=== PATIENT | female | born 1950 | race Caucasian/White ===

== ENCOUNTER 2019-05-02 02:27 | Inpatient (IN) | payer MEDICARE, OTHER ==
[~2019-05-02] VITALS: Ht 162.6 cm; Wt 64.9 kg
[~2019-05-02 02:27] MED LIST: SITA1TAB8 PO
[2019-05-02] MEDS ORDERED: FUROSEMIDE 40MG/4ML VIAL IV ONE (02:45)
[2019-05-02 03:39] LABS: HEMATOCRIT. 21.9 % (36.0-48.0); HEMOGLOBIN. 7.3 g/dL (12.0-16.0); MEAN CORPUSCULAR HEMOGLOBIN 30.1 pg (28.0-32.0); MEAN CORPUSCULAR VOLUME 90.3 fL (81.0-99.0); MEAN PLATELET VOLUME 8.8 fl (7.4-10.4); PLATELET 222 x1000/uL (130-400); RED BLOOD CELL COUNT 2.43 mill/uL (4.2-5.4); RED CELL DISTRIBUTION WIDTH 14.9 % (11.6-14.6)
[2019-05-02 03:49] LABS: CHLORIDE 103 mEq/L (98-107)
[2019-05-02] MEDS ORDERED: CLONIDINE 0.2MG TABLET PO ONE (05:15)
[2019-05-02 06:13] LABS: NUCLEATED RED BLOOD CELLS 1 /100 WBC; PLATELET ESTIMATE NORMAL
[2019-05-02] MEDS ORDERED: DEXTROSE 50% WATER 50ML SYRINGE IV PRN (10:15)
[2019-05-02] MEDS ORDERED: ACETAMINOPHEN 325MG TABLET PO PRN (10:15)
[2019-05-02] MEDS ORDERED: NIFEDIPINE XL 60MG TAB PO SCH ×2 (10:15→17:30)
[2019-05-02] MEDS ORDERED: ONDANSETRON HCL 4MG/2ML INJ IV PRN (10:15)
[2019-05-02 11:08] LABS: FERRITIN 175 ng/mL (10-291)
[2019-05-02 11:19] LABS: HEPATITIS B SURFACE ANTIGEN NEGATIVE
[2019-05-02 11:48] LABS: HEPATITIS A AB IGM NEGATIVE (NEGATIVE)
[2019-05-02] MEDS: CLONIDINE 0.1MG TABLET PO PRN ×2 (12:13→23:07)
[2019-05-02 12:25] LABS: PHOSPHORUS 8.3 mg/dL (2.5-4.9)
[2019-05-02] MEDS: IPRATROPIUM/ALBUTEROL 0.5-3(2.5)MG/3ML NEB HHN PRN (16:51)
[2019-05-02] MEDS ORDERED: CALCIUM ACETATE 667MG CAPSULE PO NR (17:15)
[2019-05-02] MEDS ORDERED: AZITHROMYCIN 500 MG TABLET PO NR (17:30)
[2019-05-02] MEDS ORDERED: CEFTRIAXONE 1 G PREMIX 50 ML IV NR (17:30)
[2019-05-02] MEDS: BLOOD SUGAR DIAGNOSTIC STRIP TEST SCH ×2 (18:38→22:49)
[2019-05-02] MEDS: INSULIN LISPRO 100 UNITS/ML SUBCUT SCH ×2 (18:39→22:53)
[2019-05-02] MEDS ORDERED: CITRIC ACID/SODIUM CITRATE SOLN 30ML UDC PO NR (23:15)
[2019-05-03 04:44] LABS: BASOPHILS % 0.2 % (0.0-2.0); LYMPHOCYTES % 10.4 % (20.0-50.0); MEAN CORPUSCULAR HEMOGLOBIN 30.3 pg (28.0-32.0); MEAN CORPUSCULAR VOLUME 89.1 fL (81.0-99.0); MEAN PLATELET VOLUME 8.7 fl (7.4-10.4); MONOCYTES % 8.4 % (2.0-8.0); PLATELET 173 x1000/uL (130-400); RED BLOOD CELL COUNT 1.86 mill/uL (4.2-5.4); RED CELL DISTRIBUTION WIDTH 14.7 % (11.6-14.6)
[2019-05-03 05:00] LABS: HEMATOCRIT. 16.5 % (36.0-48.0); HEMOGLOBIN. 5.6 g/dL (12.0-16.0)
[2019-05-03] MEDS: INSULIN LISPRO 100 UNITS/ML SUBCUT SCH ×4 (08:20→21:24)
[2019-05-03] MEDS: BLOOD SUGAR DIAGNOSTIC STRIP TEST SCH ×4 (09:00→20:16)
[2019-05-03 11:00] VITALS: BP 150/59
[2019-05-03 13:22] LABS: BASOPHILS % 0.4 % (0.0-2.0); EOSINOPHILS % 0.1 % (0.0-5.0); HEMATOCRIT. 27.3 % (36.0-48.0); HEMOGLOBIN. 9.4 g/dL (12.0-16.0); LYMPHOCYTES % 17.4 % (20.0-50.0); MEAN CORPUSCULAR HEMOGLOBIN 30.8 pg (28.0-32.0); MEAN CORPUSCULAR VOLUME 89.2 fL (81.0-99.0); MEAN PLATELET VOLUME 8.4 fl (7.4-10.4); MONOCYTES % 9.3 % (2.0-8.0); NEUTROPHILS % 72.8 % (40.0-76.0); PLATELET 171 x1000/uL (130-400); RED BLOOD CELL COUNT 3.07 mill/uL (4.2-5.4); RED CELL DISTRIBUTION WIDTH 15.1 % (11.6-14.6)
[2019-05-03] MEDS: NIFEDIPINE XL 60MG TAB PO SCH ×2 (13:25→20:58)
[2019-05-03] MEDS: BENZONATATE 100MG CAPSULE PO PRN ×2 (13:26→21:59)
[2019-05-03] MEDS: CITRIC ACID/SODIUM CITRATE SOLN 30ML UDC PO SCH ×2 (13:27→17:18)
[2019-05-03] MEDS: CALCIUM ACETATE 667MG CAPSULE PO SCH ×2 (13:28→17:18)
[2019-05-03 16:00] VITALS: BP 124/49
[2019-05-03] MEDS ORDERED: PNEUMOCOCCAL 23-VAL P-SAC VAC 0.5 ML IM ONE (17:00)
[2019-05-03] MEDS ORDERED: INFLUENZA VIRUS VACCINE(AFLURIA) 0.5ML SYR IM ONE (17:00)
[2019-05-03] MEDS: AZITHROMYCIN 500 MG TABLET PO SCH (17:18)
[2019-05-03] MEDS ORDERED: CEFTRIAXONE 1 G PREMIX 50 ML IV SCH (18:00)
[2019-05-03 20:00] VITALS: BP 110/45
[2019-05-04] VITALS: BP 124/51
[2019-05-04 04:00] VITALS: BP 107/36
[2019-05-04] MEDS: BLOOD SUGAR DIAGNOSTIC STRIP TEST SCH ×4 (06:14→21:00)
[2019-05-04] MEDS: BENZONATATE 100MG CAPSULE PO PRN ×4 (06:29→20:51)
[2019-05-04] MEDS: INSULIN LISPRO 100 UNITS/ML SUBCUT SCH ×4 (06:36→20:51)
[2019-05-04] MEDS: CALCIUM ACETATE 667MG CAPSULE PO SCH ×3 (08:46→18:01)
[2019-05-04] MEDS: NIFEDIPINE XL 60MG TAB PO SCH ×2 (08:46→20:51)
[2019-05-04] MEDS: DOCUSATE SODIUM 250MG CAPSULE PO SCH ×2 (08:46→17:00)
[2019-05-04] MEDS: CITRIC ACID/SODIUM CITRATE SOLN 30ML UDC PO SCH ×3 (08:47→18:01)
[2019-05-04 09:06] LABS: COMPLEMENT C3 73 mg/dL (82-167)
[2019-05-04 11:25] LABS: BG BASE EXCESS -10.3 mmol/L (-2.0-2.0); BG CARBOXYHEMOGLOBIN 0.1 % (0.5-1.5); BG DEOXYHEMOGLOBIN 4.2 % (0.0-5.0); BG FRACTION INSPIRED OXYGEN 21; BG HCO3 ACT 14.5 mmol/L (22.0-26.0); BG METHEMOGLOBIN 0.3 % (0.0-1.5); BG OXYGEN SATURATION 95.8 % (92.0-98.5); BG OXYHEMOGLOBIN 95.4 % (94.0-97.0); BG PCO2 28.6 mmHg (35.0-45.0); BG PH 7.324 (7.350-7.450); BG PO2 90.8 mmHg (75.0-100.0); BG SAMPLE SITE RIGHT RADIAL; BG TOTAL HEMOGLOBIN 9.4 g/dL (12.0-18.0); BG VENT MODE ROOM AIR
[2019-05-04] MEDS: IPRATROPIUM/ALBUTEROL 0.5-3(2.5)MG/3ML NEB HHN PRN (11:33)
[2019-05-04 11:54] LABS: BASOPHILS % 0.6 % (0.0-2.0); EOSINOPHILS % 0.1 % (0.0-5.0); HEMATOCRIT. 25.8 % (36.0-48.0); HEMOGLOBIN. 8.8 g/dL (12.0-16.0); MEAN CORPUSCULAR HEMOGLOBIN 30.6 pg (28.0-32.0); MEAN CORPUSCULAR VOLUME 89.6 fL (81.0-99.0); MEAN PLATELET VOLUME 9.1 fl (7.4-10.4); MONOCYTES % 10.7 % (2.0-8.0); NEUTROPHILS % 69.6 % (40.0-76.0); PLATELET 178 x1000/uL (130-400); RED BLOOD CELL COUNT 2.87 mill/uL (4.2-5.4); RED CELL DISTRIBUTION WIDTH 15.5 % (11.6-14.6)
[2019-05-04] MEDS ORDERED: DOCU250C14 MT (12:54)
[2019-05-04] MEDS ORDERED: NIFE-32 MT (12:54)
[2019-05-04] MEDS ORDERED: FERR325T6 MT (12:54)
[2019-05-04 15:08] LABS: ANTI-NUCLEAR ANTIBODIES DIRECT Negative (Negative)
[2019-05-04] MEDS: IRON SUCROSE COMPLEX 100 MG/5 ML ML IV SCH (15:19)
[2019-05-04] MEDS: AZITHROMYCIN 500 MG TABLET PO SCH (18:01)
[2019-05-04 20:00] VITALS: BP 120/41
[2019-05-04] MEDS: EPOETIN ALFA 10000UNITS/ML VIAL SUBCUT SCH (21:22)
[2019-05-05] VITALS: BP 128/52
[2019-05-05 04:00] VITALS: BP 143/54
[2019-05-05] MEDS: BENZONATATE 100MG CAPSULE PO PRN ×2 (04:11→21:08)
[2019-05-05] MEDS: BLOOD SUGAR DIAGNOSTIC STRIP TEST SCH ×4 (06:04→21:15)
[2019-05-05] MEDS: CALCIUM ACETATE 667MG CAPSULE PO SCH ×3 (06:07→17:30)
[2019-05-05] MEDS: INSULIN LISPRO 100 UNITS/ML SUBCUT SCH ×4 (06:13→21:00)
[2019-05-05 06:55] LABS: BASOPHILS % 0.3 % (0.0-2.0); EOSINOPHILS % 0.1 % (0.0-5.0); HEMATOCRIT. 27.2 % (36.0-48.0); HEMOGLOBIN. 9.4 g/dL (12.0-16.0); LYMPHOCYTES % 20.1 % (20.0-50.0); MEAN CORPUSCULAR HEMOGLOBIN 30.6 pg (28.0-32.0); MEAN PLATELET VOLUME 8.5 fl (7.4-10.4); MONOCYTES % 12.7 % (2.0-8.0); NEUTROPHILS % 66.8 % (40.0-76.0); PLATELET 192 x1000/uL (130-400); RED BLOOD CELL COUNT 3.06 mill/uL (4.2-5.4); RED CELL DISTRIBUTION WIDTH 15.5 % (11.6-14.6)
[2019-05-05 08:00] VITALS: BP 143/49
[2019-05-05] MEDS: NIFEDIPINE XL 60MG TAB PO SCH ×2 (10:00→21:08)
[2019-05-05] MEDS: DOCUSATE SODIUM 250MG CAPSULE PO SCH ×2 (10:00→17:30)
[2019-05-05] MEDS: IRON SUCROSE COMPLEX 100 MG/5 ML ML IV SCH (10:01)
[2019-05-05] MEDS: CITRIC ACID/SODIUM CITRATE SOLN 30ML UDC PO SCH ×3 (10:01→17:29)
[2019-05-05 12:00] VITALS: BP 159/60
[2019-05-05 16:00] VITALS: BP 148/54
[2019-05-05] MEDS: AZITHROMYCIN 500 MG TABLET PO SCH (17:29)
[2019-05-05 20:00] VITALS: BP 144/56
[2019-05-06 04:00] VITALS: BP 147/52
[2019-05-06] MEDS: BLOOD SUGAR DIAGNOSTIC STRIP TEST SCH ×4 (07:40→21:54)
[2019-05-06 08:00] VITALS: BP 145/56
[2019-05-06] MEDS: DOCUSATE SODIUM 250MG CAPSULE PO SCH ×2 (09:02→17:00)
[2019-05-06] MEDS: CITRIC ACID/SODIUM CITRATE SOLN 30ML UDC PO SCH ×3 (09:03→17:00)
[2019-05-06] MEDS: CALCIUM ACETATE 667MG CAPSULE PO SCH ×3 (09:03→18:12)
[2019-05-06] MEDS: NIFEDIPINE XL 60MG TAB PO SCH ×2 (09:03→21:53)
[2019-05-06] MEDS: INSULIN LISPRO 100 UNITS/ML SUBCUT SCH ×4 (09:04→22:18)
[2019-05-06] MEDS: IRON SUCROSE COMPLEX 100 MG/5 ML ML IV SCH (10:14)
[2019-05-06] MEDS ORDERED: LORAZEPAM 2MG/ML CPJ IV NR (11:00)
[2019-05-06 12:00] VITALS: BP 140/58
[2019-05-06 13:25] LABS: PARTIAL THROMBOPLASTIN TIME 37.8 sec (23.4-31.0); PROTHROMBIN TIME 10.5 sec (9.6-11.0)
[2019-05-06] MEDS: BENZONATATE 100MG CAPSULE PO PRN (13:38)
[2019-05-06] MEDS ORDERED: SODIUM BICARBONATE 4% (2.4MEQ) 5ML VIAL IV ONE (14:13)
[2019-05-06] MEDS ORDERED: LIDOCAINE HCL 1% 20ML VIAL (Pyxis) INJ ONE (14:13)
[2019-05-06 16:00] VITALS: BP 132/55
[2019-05-06] MEDS: CEFTRIAXONE 1 G PREMIX 50 ML IV SCH (18:00)
[2019-05-06] MEDS: AZITHROMYCIN 500 MG TABLET PO SCH (18:12)
[2019-05-06 20:00] VITALS: BP 166/57
[2019-05-06] MEDS: EPOETIN ALFA 10000UNITS/ML VIAL SUBCUT SCH (21:54)
[2019-05-07] VITALS: BP 119/62
[2019-05-07 04:00] VITALS: BP 145/50
[2019-05-07] MEDS: BLOOD SUGAR DIAGNOSTIC STRIP TEST SCH ×4 (06:19→20:06)
[2019-05-07 08:00] VITALS: BP 157/59
[2019-05-07] MEDS: INSULIN LISPRO 100 UNITS/ML SUBCUT SCH ×4 (08:07→21:01)
[2019-05-07] MEDS: CITRIC ACID/SODIUM CITRATE SOLN 30ML UDC PO SCH ×4 (08:29→17:00)
[2019-05-07] MEDS: NIFEDIPINE XL 60MG TAB PO SCH ×2 (08:29→20:58)
[2019-05-07] MEDS: CALCIUM ACETATE 667MG CAPSULE PO SCH ×3 (08:29→17:41)
[2019-05-07] MEDS: DOCUSATE SODIUM 250MG CAPSULE PO SCH ×3 (08:29→17:00)
[2019-05-07 12:00] VITALS: BP 168/66
[2019-05-07] MEDS: CLONIDINE 0.1MG TABLET PO PRN (12:31)
[2019-05-07 16:00] VITALS: BP 152/61
[2019-05-07] MEDS: AZITHROMYCIN 500 MG TABLET PO SCH (17:41)
[2019-05-07 17:47] LABS: BASOPHILS % 0.3 % (0.0-2.0); EOSINOPHILS % 0.3 % (0.0-5.0); HEMATOCRIT. 29.7 % (36.0-48.0); HEMOGLOBIN. 10.2 g/dL (12.0-16.0); LYMPHOCYTES % 16.8 % (20.0-50.0); MEAN CORPUSCULAR HEMOGLOBIN 30.8 pg (28.0-32.0); MEAN PLATELET VOLUME 7.5 fl (7.4-10.4); MONOCYTES % 14.7 % (2.0-8.0); NEUTROPHILS % 67.9 % (40.0-76.0); PLATELET 260 x1000/uL (130-400); RED CELL DISTRIBUTION WIDTH 15.7 % (11.6-14.6)
[2019-05-07] MEDS: CEFTRIAXONE 1 G PREMIX 50 ML IV SCH ×2 (18:00→19:43)
[2019-05-07 20:00] VITALS: BP 143/53
[2019-05-08 00:39] VITALS: BP 118/60
[2019-05-08 04:00] VITALS: BP 148/60
[2019-05-08] MEDS: BLOOD SUGAR DIAGNOSTIC STRIP TEST SCH ×4 (05:57→21:45)
[2019-05-08 07:17] LABS: HEMATOCRIT. 31.7 % (36.0-48.0); HEMOGLOBIN. 10.8 g/dL (12.0-16.0); MEAN CORPUSCULAR HEMOGLOBIN 30.7 pg (28.0-32.0); MEAN CORPUSCULAR VOLUME 90.4 fL (81.0-99.0); MEAN PLATELET VOLUME 7.4 fl (7.4-10.4); PLATELET 304 x1000/uL (130-400); RED BLOOD CELL COUNT 3.51 mill/uL (4.2-5.4); RED CELL DISTRIBUTION WIDTH 15.4 % (11.6-14.6)
[2019-05-08 08:00] VITALS: BP 145/50
[2019-05-08] MEDS: INSULIN LISPRO 100 UNITS/ML SUBCUT SCH ×4 (08:10→21:00)
[2019-05-08] MEDS: CALCIUM ACETATE 667MG CAPSULE PO SCH ×3 (08:51→17:42)
[2019-05-08] MEDS: NIFEDIPINE XL 60MG TAB PO SCH ×2 (08:52→21:35)
[2019-05-08] MEDS: CITRIC ACID/SODIUM CITRATE SOLN 30ML UDC PO SCH ×3 (08:52→17:00)
[2019-05-08] MEDS: DOCUSATE SODIUM 250MG CAPSULE PO SCH ×2 (08:52→17:00)
[2019-05-08 12:00] VITALS: BP 133/60
[2019-05-08 13:56] LABS: PLATELET ESTIMATE NORMAL
[2019-05-08 16:00] VITALS: BP 153/58
[2019-05-08] MEDS: AZITHROMYCIN 500 MG TABLET PO SCH (17:42)
[2019-05-08] MEDS: CEFTRIAXONE 1 G PREMIX 50 ML IV SCH (17:43)
[2019-05-08 20:00] VITALS: BP 143/56
[2019-05-09] VITALS: BP 172/60
[2019-05-09 04:00] VITALS: BP 156/64
[2019-05-09] MEDS: BLOOD SUGAR DIAGNOSTIC STRIP TEST SCH ×4 (06:19→21:43)
[2019-05-09 06:55] LABS: HEMATOCRIT. 29.9 % (36.0-48.0); HEMOGLOBIN. 10.3 g/dL (12.0-16.0); MEAN CORPUSCULAR VOLUME 89.5 fL (81.0-99.0); MEAN PLATELET VOLUME 7.3 fl (7.4-10.4); PLATELET 258 x1000/uL (130-400); RED BLOOD CELL COUNT 3.34 mill/uL (4.2-5.4); RED CELL DISTRIBUTION WIDTH 14.8 % (11.6-14.6)
[2019-05-09] MEDS: INSULIN LISPRO 100 UNITS/ML SUBCUT SCH ×4 (07:16→21:46)
[2019-05-09 08:00] VITALS: BP 162/58
[2019-05-09] MEDS: DOCUSATE SODIUM 250MG CAPSULE PO SCH ×2 (08:56→17:41)
[2019-05-09] MEDS: CALCIUM ACETATE 667MG CAPSULE PO SCH ×3 (08:56→17:41)
[2019-05-09] MEDS: NIFEDIPINE XL 60MG TAB PO SCH ×2 (08:56→21:45)
[2019-05-09] MEDS: CITRIC ACID/SODIUM CITRATE SOLN 30ML UDC PO SCH ×3 (08:57→17:00)
[2019-05-09 11:53] LABS: PLATELET ESTIMATE NORMAL
[2019-05-09 12:00] VITALS: BP 146/61
[2019-05-09 16:00] VITALS: BP 156/64
[2019-05-09] MEDS: AZITHROMYCIN 500 MG TABLET PO SCH (17:41)
[2019-05-09] MEDS: CEFTRIAXONE 1 G PREMIX 50 ML IV SCH (17:42)
[2019-05-09 20:00] VITALS: BP 158/62
[2019-05-10] VITALS: BP 155/72
[2019-05-10 04:00] VITALS: BP 143/63
[2019-05-10] MEDS: BLOOD SUGAR DIAGNOSTIC STRIP TEST SCH (07:32)
[2019-05-10] MEDS: INSULIN LISPRO 100 UNITS/ML SUBCUT SCH (07:33)
[2019-05-10 08:00] VITALS: BP 164/63
[2019-05-10] MEDS: CITRIC ACID/SODIUM CITRATE SOLN 30ML UDC PO SCH (09:00)
[2019-05-10] MEDS: CALCIUM ACETATE 667MG CAPSULE PO SCH ×2 (09:12→12:07)
[2019-05-10] MEDS: NIFEDIPINE XL 60MG TAB PO SCH (09:12)
[2019-05-10] MEDS: DOCUSATE SODIUM 250MG CAPSULE PO SCH (09:12)
[2019-05-10 11:53] VITALS: BP 145/79
== END 2019-05-10 12:47 | disposition home health service (06) | DRG 133 ==
LOC: ER 02:45 → EDBEDREQSVC 06:38 → EDBEDREQ 06:38 → EDBEDREQTM 06:38 → 5WST 06:39 → EDBEDREQSVC 05-03 08:16 → ENRESERV 05-03 09:25 → 7WST 05-05 23:25
PROVIDERS: ADMIT Internal Medicine; ATTEND Internal Medicine
PROC: 30233N1 Transfusion of Nonautologous Red Blood Cells into Peripheral Vein, Percutaneous Approach (ICD-10-PCS; principal; 2019-05-03)
PROC: 02HV33Z Insertion of Infusion Device into Superior Vena Cava, Percutaneous Approach (ICD-10-PCS; 2019-05-06)
PROC: B548ZZA Ultrasonography of Superior Vena Cava, Guidance (ICD-10-PCS; 2019-05-06)
PROC: B5181ZA Fluoroscopy of Superior Vena Cava using Low Osmolar Contrast, Guidance (ICD-10-PCS; 2019-05-06)
PROC: 5A1D70Z Performance of Urinary Filtration, Intermittent, Less than 6 Hours Per Day (ICD-10-PCS; 2019-05-06)
PROC: 5A1D70Z Performance of Urinary Filtration, Intermittent, Less than 6 Hours Per Day (ICD-10-PCS; 2019-05-08)
PROC: 5A1D70Z Performance of Urinary Filtration, Intermittent, Less than 6 Hours Per Day (ICD-10-PCS; 2019-05-10)
DX: J96.00 Acute respiratory failure, unspecified whether with hypoxia or hypercapnia (principal); I13.2 Hypertensive heart and chronic kidney disease with heart failure and with stage 5 chronic kidney disease, or end stage renal disease; E44.0 Moderate protein-calorie malnutrition; J18.9 Pneumonia, unspecified organism; N17.9 Acute kidney failure, unspecified; E87.2 Acidosis; K86.2 Cyst of pancreas; E11.22 Type 2 diabetes mellitus with diabetic chronic kidney disease; I27.20 Pulmonary hypertension, unspecified; E83.51 Hypocalcemia; E87.1 Hypo-osmolality and hyponatremia; I42.9 Cardiomyopathy, unspecified; I48.91 Unspecified atrial fibrillation; D64.9 Anemia, unspecified; E78.5 Hyperlipidemia, unspecified; E87.6 Hypokalemia; N18.9 Chronic kidney disease, unspecified; E83.39 Other disorders of phosphorus metabolism; G62.9 Polyneuropathy, unspecified; I07.1 Rheumatic tricuspid insufficiency; R16.0 Hepatomegaly, not elsewhere classified; R26.9 Unspecified abnormalities of gait and mobility; I48.0 Paroxysmal atrial fibrillation; I50.43 Acute on chronic combined systolic (congestive) and diastolic (congestive) heart failure; N18.6 End stage renal disease; Z91.15 Patient's noncompliance with renal dialysis; Z68.24 Body mass index [BMI] 24.0-24.9, adult; Z79.899 Other long term (current) drug therapy
CPT/HCPCS: 36415; 36558; 36600; 71045; 76700; 76937; 77001; 80048; 80053; 80076; 82105; 82375; 82550; 82575; 82728; 82805; 82962; 83036; 83540; 83550; 83880; 84100; 84484; 85025; 86038; 86160; 86301; 86705; 86709; 86803; 86850; 86900; 86920; 87340; 90686; 90732; 93005; 93306; 93970; 94640; 96365; 96375; 97162; 97166; 97530; 99291; C1750; C1769; J0696; J0885; J1642; J1815; J1940; J2060; J2405; J3490; J7040; J7620; P9016

== ENCOUNTER → 2019-11-22 | Outpatient (CLI) | payer MEDICARE, OTHER ==
[~2019-11-22] MED LIST changes: +AMLO5TAB88 PO; +ASPI-1497 PO; +DOCU250C14 MT; +FERR325T6 MT; +INSU100I19 SQ; +LEVVL SQ; +LORA10TA7 PO; +LOSA50TA41 PO; +METO-539 PO; +NIFE-32 MT; +SIMV10TA97 PO
== END | disposition home or self-care (01) ==
LOC: LAB 05:56
PROVIDERS: ATTEND Specialist
DX: R05 Cough (principal); Z20.828 Contact with and (suspected) exposure to other viral communicable diseases
CPT/HCPCS: 87635; C9803

== ENCOUNTER 2019-11-23 11:20 | Day surgery (SDC) | payer MEDICARE, OTHER ==
[~2019-11-23 11:20] MED LIST changes: -AMLO5TAB88 PO; -ASPI-1497 PO; -INSU100I19 SQ; -LEVVL SQ; -LORA10TA7 PO; -LOSA50TA41 PO; -METO-539 PO; -SIMV10TA97 PO
[2019-11-23] MEDS ORDERED: LIDOCAINE HCL 1% 20ML VIAL (Pyxis) INJ ONE (11:55)
[2019-11-23] MEDS ORDERED: FENTANYL CITRATE/PF 50MCG/ML 2ML VIAL ONE (11:55)
[2019-11-23] MEDS ORDERED: MIDAZOLAM HCL 2 MG/2 ML VIAL ONE (11:56)
[2019-11-23] MEDS ORDERED: IODIXANOL 320MG/ML 100 ML BOTTLE IV ONE (11:56)
[2019-11-23] MEDS ORDERED: LEVVL SQ (12:16)
[2019-11-23] MEDS ORDERED: ASPIRIN/SOD BICARB/CITRIC ACID 324MG TAB EFF ONE (12:59)
[2019-11-23] MEDS ORDERED: NITROGLYCERIN 50MCG/ML 10ML VIAL (CATH LAB) IV ONE (13:18)
[2019-11-23] MEDS ORDERED: HYDRALAZINE 20MG/ML VIAL ONE (13:20)
== END 2019-11-23 18:20 | disposition home or self-care (01) ==
LOC: CCL 11:20
PROVIDERS: ATTEND Specialist
DX: I25.10 Atherosclerotic heart disease of native coronary artery without angina pectoris (principal); Z87.891 Personal history of nicotine dependence; Z79.899 Other long term (current) drug therapy; Z79.4 Long term (current) use of insulin; Z98.890 Other specified postprocedural states
CPT/HCPCS: 82962; 93458; C1760; C1769; C1887; C1893; J0360; J1644; J2250; J3010; J3490; Q9967

== ENCOUNTER → 2019-12-22 | Outpatient (CLI) | payer MEDICARE, OTHER ==
[~2019-12-22] MED LIST changes: +AMLO5TAB88 PO; +ASPI-1497 PO; +FENTANYL CITRATE/PF 50MCG/ML 2ML VIAL ONE; +GLYCOPYRROLATE 0.2 MG/ML 2ML VIAL ONE; +INSU100I19 SQ; +LEVVL SQ; +LORA10TA7 PO; +LOSA50TA41 PO; +METO-539 PO; +METOCLOPRAMIDE HCL 10MG/2ML VIAL ONE; +MIDAZOLAM HCL 2 MG/2 ML VIAL ONE; +ONDANSETRON HCL 4MG/2ML INJ ONE; +PROPOFOL 200MG/20ML VIAL IV ONE; +SIMV10TA97 PO; +SUCCINYLCHOLINE CHLORIDE 200MG/10ML IV ONE
== END | disposition home or self-care (01) ==
LOC: LAB 07:22
PROVIDERS: ATTEND Surgery Vascular Surgery
DX: Z01.812 Encounter for preprocedural laboratory examination (principal); Z20.828 Contact with and (suspected) exposure to other viral communicable diseases; N18.6 End stage renal disease
CPT/HCPCS: C9803; U0003

== ENCOUNTER → 2019-12-23 | Day surgery (SDC) | payer MEDICARE, OTHER ==
[~2019-12-23] VITALS: Ht 162.6 cm; Wt 63.1 kg
[~2019-12-23] MED LIST changes: +BACITRACIN 50,000 UNITS/VIAL ONE; +BUPIVACAINE HCL/PF 0.5% (5MG/ML) 10ML ONE; -DOCU250C14 MT; -FENTANYL CITRATE/PF 50MCG/ML 2ML VIAL ONE; -FERR325T6 MT; -GLYCOPYRROLATE 0.2 MG/ML 2ML VIAL ONE; +HEPARIN SODIUM 1,000 UNIT/1ML VIAL IV ONE; +HYDRALAZINE 20MG/ML VIAL IV NR; +HYDRALAZINE 20MG/ML VIAL IV ONE; +HYDROMORPHONE HCL/PF 2MG/ML CPJ IV PRN; -LEVVL SQ; +LIDOCAINE HCL 1% 20ML VIAL (Pyxis) INJ ONE; -METOCLOPRAMIDE HCL 10MG/2ML VIAL ONE; -MIDAZOLAM HCL 2 MG/2 ML VIAL ONE; +MORPHINE SULFATE 2 MG/ML CPJ (NOT FOR IM USE) IV PRN; -NIFE-32 MT; +NORMAL SALINE 0.9% 10 ML SYR ONE; +ONDANSETRON HCL 4MG/2ML INJ IV PRN; -ONDANSETRON HCL 4MG/2ML INJ ONE; -PROPOFOL 200MG/20ML VIAL IV ONE; +ROPIVACAINE HCL 10MG/ML 20 ML VIAL EPI ONE; -SITA1TAB8 PO; +SODIUM CHLORIDE 0.9% 1,000 ML IV ONE; +SODIUM CHLORIDE 0.9% 1,000 ML ONE; +SODIUM CHLORIDE 0.9% 250 ML IV ONE; +SODIUM CHLORIDE 0.9% 500 ML IV ONE; -SUCCINYLCHOLINE CHLORIDE 200MG/10ML IV ONE; +THROMBIN (BOVINE) 5000 UNITS/VIAL TOP ONE
[2019-12-23 10:21] LABS: BASOPHILS % 0.4 % (0.0-2.0); EOSINOPHILS % 1.6 % (0.0-5.0); HEMATOCRIT. 37.4 % (36.0-48.0); HEMOGLOBIN. 12.7 g/dL (12.0-16.0); MEAN CORPUSCULAR VOLUME 97.2 fL (81.0-99.0); MEAN PLATELET VOLUME 9.1 fl (7.4-10.4); MONOCYTES % 7.4 % (2.0-8.0); NEUTROPHILS % 72.6 % (40.0-76.0); PLATELET 152 x1000/uL (130-400); RED BLOOD CELL COUNT 3.84 mill/uL (4.2-5.4); RED CELL DISTRIBUTION WIDTH 14.2 % (11.6-14.6)
[2019-12-23 10:29] LABS: PARTIAL THROMBOPLASTIN TIME 30.1 sec (23.4-31.0); PROTHROMBIN TIME 10.3 sec (9.6-11.0)
[2019-12-23 13:40] VITALS: BP 154/73
== END | disposition home or self-care (01) ==
LOC: OR 09:27
PROVIDERS: ATTEND Surgery Vascular Surgery
DX: N18.6 End stage renal disease (principal); Z79.82 Long term (current) use of aspirin; Z79.4 Long term (current) use of insulin; Z79.899 Other long term (current) drug therapy; Z87.891 Personal history of nicotine dependence; Z99.2 Dependence on renal dialysis
CPT/HCPCS: 36415; 36821; 80048; 82962; 85025; 85610; 85730; 93005; J0330; J0360; J1170; J1644; J2250; J2405; J2704; J2765; J2795; J3010; J3490; J7030; J7050; A4565